=== PATIENT | female | born 1970 ===

== ENCOUNTER 2019-03-29 12:02 | Outpatient (CLI) | payer OTHER ==
[~2019-03-29] VITALS: Ht 165.1 cm; Wt 72.6 kg
[2019-03-29] MEDS ORDERED: CEFUROXIME500 MG PO (12:49)
[2019-03-29] MEDS ORDERED: MUCINEX600 MG PO (12:49)
== END 2019-03-29 13:18 | disposition home or self-care (01) ==
LOC: OFIC 805 12:02
DX: H65.02 Acute serous otitis media, left ear (principal); H69.82 Other specified disorders of Eustachian tube, left ear; Z72.0 Tobacco use

== ENCOUNTER 2019-04-10 07:38 | Outpatient (CLI) | payer OTHER ==
[~2019-04-10 07:38] MED LIST: CEFUROXIME500 MG PO; MUCINEX600 MG PO
== END 2019-04-10 07:39 | disposition home or self-care (01) ==
LOC: SONOGRAMA 07:38
DX: E04.1 Nontoxic single thyroid nodule (principal)